=== PATIENT | male | born 1970 | race Hispanic/Latino ===

== ENCOUNTER 2016-11-19 18:38 | Emergency (ER) | payer OTHER ==
[~2016-11-19] VITALS: Ht 157.5 cm; Wt 97.5 kg
--- NOTE | 2016-11-19 19:28 | ED CARDIAC/CP/PALPITATIONS ---
History of Present Illness General Chief Complaint: Chest Pain Stated Complaint: CP Source: patient Exam Limitations: no limitations Vital Signs & Intake/Output Vital Signs & Intake/Output Vital Signs Date Time Temp Pulse Resp B/P Pulse O2 O2 Flow FiO2 Ox Delivery Rate 11/19 2349 67 20 121/69 97 Room Air 11/19 2219 98.3 67 15 129/79 100 Room Air 11/19 2006 99 Room Air 11/19 1855 98.2 81 20 124/86 96 Room Air ED Intake and Output 11/20 0000 11/19 1200 Intake Total 0 Output Total Balance 0 Intake, Oral 0 Patient 215 lb Weight Allergies Coded Allergies: shellfish derived (Intermediate, ITCHY, EYES SWOLLEN 11/19/16) Triage Note: TRIAGE: PT TO ER C/C CHEST PAIN WHILE AT WORK APPROX 16:45. PAIN WAS L CHEST, SHARP, 9/10 AND LASTED A COUPLE SECONDS. HAD REPEAT EPISODES EVERY 5 MINUTES X 5-6. TOOK ASPIRIN WHILE AT WORK BUT IS UNSURE OF STRENGTH. PT PAIN FREE AT TRIAGE AND PAIN FREE SINCE 18:00. REPORTS SOB WITH THE PAIN STATING "EVERY TIME I HAD THE PAIN THE PAIN WAS WORSE WITH DEEPER BREATHS". -NAUSEA. -DIAPHORESIS. HAD EKG DONE AT [facility] PRIOR TO TRIAGE, NSR 77. Triage Nurses Notes Reviewed? yes Onset: Abrupt Duration: minute(s):, gone now Timing: single episode today Quality/Severity: mild Location: central Radiation: no radiation Activities at Onset: at work Aspirin Today: provided at home, aspirin x 2 today Associated Symptoms: otherwise well HPI: 46 yo gentleman who presents with an episode of chest pain, central, non radiating, at approximately 4:45pm that self resolved. He had a few fleeting episodes afterwards. He notes no chest pain at present. These episodes were not radiating. There was no shortness of breath, diaphoresis, dizziness, or syncopal type symptoms. He is presently feeling well. Past History Travel History Traveled to [place] past 21 day No Medical History Any Pertinent Medical History? 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 No Review of Systems Review of Systems Constitutional: Reports: no symptoms. EENTM: Reports: no symptoms. Respiratory: Reports: no symptoms. Cardiovascular: Reports: no symptoms. GI: Reports: no symptoms. Genitourinary: Reports: no symptoms. Musculoskeletal: Reports: no symptoms. Skin: Reports: no symptoms. Neurological/Psychological: Reports: no symptoms. Hematologic/Endocrine: Reports: no symptoms. Immunologic/Allergic: Reports: no symptoms. All Other Systems: Reviewed and Negative Physical Exam Physical Exam General Appearance: well developed/nourished, no apparent distress, alert, comfortable Head: atraumatic, normal appearance Eyes: Bilateral: normal appearance. Ears, Nose, Throat: normal pharynx Neck: normal inspection, supple, full range of motion Respiratory: normal breath sounds Cardiovascular: regular rate/rhythm Gastrointestinal: normal bowel sounds, soft, non-tender, no organomegaly Back: normal inspection Extremities: normal inspection Neurologic/Psych: no motor/sensory deficits, awake, alert, oriented x 3 Skin: intact, normal color, warm/dry Core Measures ACS in differential dx? No Severe Sepsis Present: No Septic Shock Present: No Progress Differential Diagnosis: AMI, CHF/pulm edema, unstable angina Plan of Care: Orders Procedure Date/time Status TROPONIN LEVEL 11/19 2309 Complete EKG 11/19 231 Active TROPONIN LEVEL 11/20 1927 Complete D-DIMER 11/20 1927 Complete COMPREHENSIVE METABOLIC PANEL 11/20 1927 Complete CBC WITHOUT DIFFERENTIAL 11/20 1927 Complete EKG 11/19 1839 Active Laboratory Tests 11/19/16 2325: Troponin I < 0.01 11/19/16 2007: Anion Gap 7, Estimated GFR > 60, BUN/Creatinine Ratio 18.3, Glucose 86, Calcium 10.0, Total Bilirubin 0.6, AST 21, ALT 45, Alkaline Phosphatase 47, Troponin I < 0.01, Total Protein 7.4, Albumin 4.7, Globulin 2.7, Albumin/Globulin Ratio 1.7, D-Dimer < 200, CBC w Diff NO MAN DIFF REQ, RBC 5.03, MCV 85.1, MCH 28.8, RDW 13.6, MPV 8.4, Gran % 58.2, Lymphocytes % 34.3, Monocytes % 4.6, Eosinophils % 2.1, Basophils % 0.8, Absolute Granulocytes 3.6, Absolute Lymphocytes 2.1, Absolute Monocytes 0.3, Absolute Eosinophils 0.1, Absolute Basophils 0.1, PUBS MCHC 33.8 Diagnostic Imaging: Viewed by Me: Radiology Read. Discussed w/RAD: Radiology Read. CXR Impression: no acute abnormality, no infiltrates, normal size heart, normal mediastinum, LOW LUNG VOLUMES Initial ED EKG: normal axis, normal intervals, normal p-waves, normal QRS complex, normal sinus rhythm Comments: PATIENT: CECI ZENG PRESENT AGE: 46 PATIENT ACCOUNT NO: [id number] : 70 LOCATION: [facility] ORDERING PHYSICIAN: PASCUAL CHRISTIAN MD SERVICE DATE: 11/19/16 EXAM TYPE: RAD - XRY-PORTABLE CHEST XRAY EXAMINATION: XR PORTABLE CHEST CLINICAL INFORMATION: Chest pain. COMPARISON: Chest radiograph 07/29/2014. TECHNIQUE: Portable AP view of the chest was obtained. FINDINGS: Low lung volumes. There is no focal consolidation, pleural effusion, or pneumothorax. Cardiac silhouette size is normal. There are no acute osseous findings. IMPRESSION: Low lung volumes with no acute pulmonary process. DICTATED BY: ZABRINA ANGEL MD DATE/TIME DICTATED:11/19/162018 SCIENTIFIC AFFAIRS MANAGER:JJ DATE/TIME TRANSCRIBED:11/19/162018 CONFIDENTIAL, DO NOT COPY WITHOUT APPROPRIATE AUTHORIZATION. <Electronically signed in Other Vendor System> SIGNED BY: ZABRINA ANGEL MD 11/19/162025 Departure Departure Disposition: HOME OR SELF CARE Condition: Stable Clinical Impression Primary Impression: Chest pain Referrals: JACE SCHWARZ MD (PCP/Family) Departure Forms: Customer Survey General Discharge Information Comments 11/20/16, 1:05AM... FEELS BETTER, NO CHEST PAIN IN ED... EKG BENIGN X 2, TROPNEG X 2 Critical Care Note Critical Care Note Critical Care Time: non-applicable
--- NOTE | 2016-11-19 20:26 | RADIOLOGY REPORT ---
EXAMINATION: XR PORTABLE CHEST CLINICAL INFORMATION: Chest pain. COMPARISON: Chest radiograph 07/29/2014. TECHNIQUE: Portable AP view of the chest was obtained. FINDINGS: Low lung volumes. There is no focal consolidation, pleural effusion, or pneumothorax. Cardiac silhouette size is normal. There are no acute osseous findings. IMPRESSION: Low lung volumes with no acute pulmonary process.
[2016-11-19 20:32] LABS: ABSOLUTE BASOPHIL COUNT 0.1 /CUMM (0.0-0.2); ABSOLUTE EOSINOPHIL COUNT 0.1 /CUMM (0.0-0.7); ABSOLUTE GRANULOCYTE CT 3.6 /CUMM (1.4-6.5); ABSOLUTE LYMPH COUNT 2.1 /CUMM (1.2-3.4); ABSOLUTE MONOCYTE COUNT 0.3 /CUMM (0.10-0.60); BASOPHIL % 0.8 % (0.0-2.0); EOSINOPHIL % 2.1 % (0-5); GRANULOCYTE % 58.2 % (42.2-75.2); HEMATOCRIT 42.8 % (42-52); MEAN CORPUSCULAR HGB 28.8 PG (27.0-31.0); MEAN CORPUSCULAR HGB CONC 33.8 G/DL (33.0-37.0); MEAN CORPUSCULAR VOLUME 85.1 FL (80.0-94.0); MEAN PLATELET VOLUME 8.4 FL (7.4-10.4); PLATELET COUNT 226 /CUMM (130-400); RBC DISTRIBUTION WIDTH 13.6 % (11.5-14.5); RED BLOOD CELL CT 5.03 /CUMM (4.70-6.10); WHITE BLOOD CELL COUNT 6.1 /CUMM (4.8-10.8)
[2016-11-19 23:49] VITALS: BP 121/69
== END 2016-11-20 01:09 ==
LOC: ERH 18:38
PROVIDERS: Pediatrics
DX: R07.9 Chest pain, unspecified (principal)
CPT/HCPCS: 93005; 93010